=== PATIENT | female | born 1975 | race American Indian/Alaskan Native ===

== ENCOUNTER 2017-02-08 13:40 | Emergency (ER) | payer SELFPAY ==
[~2017-02-08] VITALS: Ht 162.6 cm; Wt 69.1 kg
[~2017-02-08 13:40] MED LIST: DOCU-30 PO; HYDR-3138 PO; IBUP-1222 PO; IBUP200T48 PO; NAPR250T; OXYC-302 PO; OXYC1TAB7 PO; PROM25TA10 PO; [UNRECOGNIZED DRUG - REMARK]
[2017-02-08 13:44] VITALS: BP 129/85
[2017-02-08] MEDS ORDERED: SODIUM CHLORIDE 0.9% 1,000 ML IV ONE (13:58)
[2017-02-08] MEDS ORDERED: SODIUM CHLORIDE FLUSH 10ML SYR IVF ONE (14:00)
[2017-02-08] MEDS ORDERED: SODIUM CHLORIDE 0.9% 1,000ML IVBOLUS ONE (14:00)
[2017-02-08] MEDS ORDERED: ONDANSETRON 2MG/ML, 2ML IVPush ONE (14:00)
[2017-02-08] MEDS ORDERED: ONDANSETRON 2MG/ML, 2ML ONE (14:26)
[2017-02-08] MEDS ORDERED: HYDROmorphone 1 MG/ML, 1ML ONE (14:26)
[2017-02-08] MEDS: HYDROmorphone 1 MG/ML, 1ML IVPush PRN ×2 (14:29→14:32)
[2017-02-08 14:48] LABS: BLOOD UREA NITROGEN 13 mg/dL (7-18)
[2017-02-08 14:51] LABS: ASPARTATE AMINO TRANSFERASE 13 U/L (15-37)
[2017-02-08] MEDS ORDERED: MAALOX/HYOSCYAMINE/LIDOCAINE 45 ML BOTTLE PO ONE (15:00)
[2017-02-08] MEDS ORDERED: MAALOX/HYOSCYAMINE/LIDOCAINE 45 ML BOTTLE ONE (15:03)
== END 2017-02-08 15:34 | disposition home or self-care (01) ==
LOC: ED 15:15
DX: A08.4 Viral intestinal infection, unspecified (principal); K21.0 Gastro-esophageal reflux disease with esophagitis; Z90.710 Acquired absence of both cervix and uterus
CPT/HCPCS: 36415; 76700; 80053; 81003; 83690; 85025; 96361; 96374; 96375; 99285; J1170; J2405; J7030

== ENCOUNTER 2018-07-26 08:42 | Emergency (ER) | payer OTHER ==
[~2018-07-26] VITALS: Ht 162.6 cm; Wt 68.0 kg
[~2018-07-26 08:42] MED LIST changes: +DOCU-131 PO; -DOCU-30 PO; -HYDR-3138 PO; +HYDR-3237 PO; -IBUP200T48 PO; +IBUP200T49 PO
[2018-07-26] MEDS ORDERED: ONDANSETRON ODT 4 MG PO ONE (09:30)
[2018-07-26] MEDS ORDERED: KETOROLAC 30 MG/1 ML IM ONE (09:30)
[2018-07-26 09:35] LABS: MICROSCOPIC AUTO
[2018-07-26 09:39] LABS: BASOPHILS # (AUTO) 0.06 x10^3/uL (0-0.1); BASOPHILS % (AUTO) 1 % (0-1); EOSINOPHILS # (AUTO) 0.27 x10^3/uL (0-0.4); EOSINOPHILS % (AUTO) 4 % (1-7); LYMPHOCYTES # (AUTO) 1.65 x10^3/uL (1-3.4); LYMPHOCYTES % (AUTO) 26 % (22-44); MD NO; MEAN CORPUSCULAR HEMOGLOBIN 33.7 pg (27.0-34.8); MEAN CORPUSCULAR HGB CONC 33.8 g/dL (32.4-35.8); MEAN CORPUSCULAR VOLUME 99.6 fL (80-100); MEAN PLATELET VOLUME 7.7 fL (7.4-10.4); MONOCYTES # (AUTO) 0.59 x10^3/uL (0.2-0.8); MONOCYTES % (AUTO) 9 % (2-9); NEUTROPHILS # (AUTO) 3.86 x10^3/uL (1.8-6.8); NEUTROPHILS % (AUTO) 60 % (42-75); PLATELET COUNT 285 x10^3/uL (130-400); RED BLOOD COUNT 4.16 x10^6/uL (3.82-5.3); RED CELL DISTRIBUTION WIDTH 13.8 % (9.6-15.2)
[2018-07-26 09:40] LABS: CULTURE INDICATED? YES
[2018-07-26 09:45] LABS: ALANINE AMINOTRANSFERASE 20 U/L (12-78); ALBUMIN 3.8 g/dL (3.4-5.0); ANION GAP 7 mmol/L (5-15); CALCIUM 8.6 mg/dL (8.5-10.1); CHLORIDE 111 mmol/L (98-107); CREATININE 0.56 mg/dL (0.55-1.02)
[2018-07-26 09:49] LABS: ALKALINE PHOSPHATASE 65 U/L (45-117); BILIRUBIN,TOTAL 0.3 mg/dL (0.2-1.0); TOTAL PROTEIN 7.5 g/dL (6.4-8.2)
[2018-07-26] MEDS ORDERED: KETOROLAC 30 MG/1 ML ONE (10:07)
[2018-07-26] MEDS ORDERED: ONDANSETRON ODT 4 MG ONE (10:08)
[2018-07-26 10:15] VITALS: BP 104/66
== END 2018-07-26 11:21 | disposition home or self-care (01) ==
LOC: ED 09:26
DX: N13.2 Hydronephrosis with renal and ureteral calculous obstruction (principal); K21.9 Gastro-esophageal reflux disease without esophagitis; F17.200 Nicotine dependence, unspecified, uncomplicated; Z90.710 Acquired absence of both cervix and uterus
CPT/HCPCS: 36415; 74176; 80053; 81001; 83690; 84703; 85025; 87086; 96372; 99284; J1885; Q0162

== ENCOUNTER 2019-06-11 11:43 | Inpatient (IN) | payer BC, OTHER ==
[~2019-06-11] VITALS: Ht 170.2 cm; Wt 68.0 kg
[2019-06-11 12:50] LABS: BASOPHILS # (AUTO) 0.06 x10^3/uL (0-0.1); BASOPHILS % (AUTO) 1 % (0-1); EOSINOPHILS # (AUTO) 0.13 x10^3/uL (0-0.4); EOSINOPHILS % (AUTO) 2 % (1-7); LYMPHOCYTES # (AUTO) 1.97 x10^3/uL (1-3.4); LYMPHOCYTES % (AUTO) 26 % (22-44); MD NO; MEAN CORPUSCULAR HEMOGLOBIN 34.7 pg (27.0-34.8); MEAN CORPUSCULAR HGB CONC 33.1 g/dL (32.4-35.8); MEAN CORPUSCULAR VOLUME 104.7 fL (80-100); MEAN PLATELET VOLUME 7.7 fL (7.4-10.4); MONOCYTES % (AUTO) 5 % (2-9); NEUTROPHILS % (AUTO) 66 % (42-75); PLATELET COUNT 301 x10^3/uL (130-400); RED BLOOD COUNT 4.23 x10^6/uL (3.82-5.3); RED CELL DISTRIBUTION WIDTH 13.5 % (9.6-15.2)
[2019-06-11 13:01] LABS: ANION GAP 6 mmol/L (5-15); CALCIUM 8.5 mg/dL (8.5-10.1); CHLORIDE 116 mmol/L (98-107)
[2019-06-11 13:05] LABS: TROPONIN I < 0.015 ng/mL (0.000-0.045)
--- NOTE | 2019-06-11 13:15 | NUR ---
PT HAS VAGUE COMPLAINT OF "FEELING WEIRD, AND PEOPLE ASKING HER IF SHE FEELS OK". PT DENIES N.V.D. PT IN GOWN. UA COLLECTED
[2019-06-11 13:22] LABS: MICROSCOPIC NOT IND
[2019-06-11] MEDS ORDERED: SODIUM CHLORIDE 0.9% 1,000ML IVBOLUS ONE (13:30)
[2019-06-11] MEDS ORDERED: SODIUM CHLORIDE FLUSH 10ML SYR IVF ONE (13:30)
[2019-06-11 13:49] LABS: CULTURE INDICATED? NO
--- NOTE | 2019-06-11 14:03 | NUR ---
lab results critical. aware.
[2019-06-11] MEDS ORDERED: OXYcodone/APAP 5/325MG TABLET PO ONE (14:30)
[2019-06-11] MEDS ORDERED: SODIUM BICARBONATE 8.4% 150 MEQ in DEXTROSE 5% 1,000 ML IV SCH (14:30)
[2019-06-11] MEDS ORDERED: OXYcodone/APAP 5/325MG TABLET ONE (14:34)
--- NOTE | 2019-06-11 14:42 | NUR ---
NISA RN: PHARMACY SLIP SENT. PT RESTING IN ROOM. VS STABLE. CALL LIGHT IN PLACE. WILL CONTINUE TO MONITOR WHILE PRIMARY RN IS ON BREAK.
[2019-06-11] MEDS ORDERED: BUPIVACAINE LIPOSOME/PF 10ML INFIL ONE (14:45)
--- NOTE | 2019-06-11 15:13 | NUR ---
REPORT TO MARY
[2019-06-11 15:43] VITALS: BP 105/65
[2019-06-11] MEDS ORDERED: ENOXAPARIN 40 MG/0.4 ML SQ SCH (16:30)
[2019-06-11] MEDS ORDERED: ONDANSETRON ODT 4 MG PO PRN (16:30)
[2019-06-11] MEDS ORDERED: NICOTINE 14MG/24 HR PATCH.TD24 TD SCH (16:30)
[2019-06-11] MEDS ORDERED: DOCUSATE 100 MG CAPSULE PO PRN (16:30)
[2019-06-11] MEDS: SODIUM BICARBONATE 8.4% 150 MEQ in DEXTROSE 5% 1,000 ML IV SCH (16:41)
[2019-06-11] MEDS: KETOROLAC 30 MG/1 ML IVPush PRN (16:42)
[2019-06-11 19:22] VITALS: BP 93/57
[2019-06-12] MEDS: KETOROLAC 30 MG/1 ML IVPush PRN ×2 (00:34→10:31)
[2019-06-12] MEDS: SODIUM BICARBONATE 8.4% 150 MEQ in DEXTROSE 5% 1,000 ML IV SCH ×3 (00:34→15:30)
[2019-06-12] MEDS: ONDANSETRON 2MG/ML, 2ML IVPush PRN ×2 (00:37→10:28)
[2019-06-12 01:14] LABS: ALANINE AMINOTRANSFERASE 15 U/L (12-78); ALBUMIN 3.2 g/dL (3.4-5.0); ANION GAP 4 mmol/L (5-15); CALCIUM 7.9 mg/dL (8.5-10.1); CHLORIDE 114 mmol/L (98-107); CREATININE 0.58 mg/dL (0.55-1.02); SALICYLATE LEVEL 13.7 mg/dL (2.8-20.0)
[2019-06-12 01:17] LABS: ALKALINE PHOSPHATASE 52 U/L (45-117); BILIRUBIN,TOTAL 0.2 mg/dL (0.2-1.0); TOTAL PROTEIN 5.9 g/dL (6.4-8.2)
[2019-06-12 02:34] VITALS: BP 113/71
[2019-06-12 05:41] LABS: BASOPHILS # (AUTO) 0.03 x10^3/uL (0-0.1); BASOPHILS % (AUTO) 1 % (0-1); EOSINOPHILS # (AUTO) 0.04 x10^3/uL (0-0.4); EOSINOPHILS % (AUTO) 1 % (1-7); LYMPHOCYTES # (AUTO) 1.21 x10^3/uL (1-3.4); LYMPHOCYTES % (AUTO) 24 % (22-44); MD NO; MEAN CORPUSCULAR HEMOGLOBIN 34.7 pg (27.0-34.8); MEAN CORPUSCULAR VOLUME 105.3 fL (80-100); MEAN PLATELET VOLUME 7.9 fL (7.4-10.4); MONOCYTES # (AUTO) 0.22 x10^3/uL (0.2-0.8); MONOCYTES % (AUTO) 4 % (2-9); NEUTROPHILS # (AUTO) 3.54 x10^3/uL (1.8-6.8); NEUTROPHILS % (AUTO) 70 % (42-75); PLATELET COUNT 241 x10^3/uL (130-400); RED BLOOD COUNT 3.68 x10^6/uL (3.82-5.3); RED CELL DISTRIBUTION WIDTH 13.6 % (9.6-15.2)
[2019-06-12 05:46] LABS: ANION GAP 4 mmol/L (5-15); CHLORIDE 112 mmol/L (98-107)
[2019-06-12 05:52] LABS: ALANINE AMINOTRANSFERASE 15 U/L (12-78); ALKALINE PHOSPHATASE 49 U/L (45-117); BILIRUBIN,TOTAL 0.2 mg/dL (0.2-1.0); TOTAL PROTEIN 5.7 g/dL (6.4-8.2)
[2019-06-12 07:31] VITALS: BP 109/71
[2019-06-12] MEDS ORDERED: MAGNESIUM SULFATE PMX 2GM/50ML 50 ML IV ONE (09:30)
[2019-06-12] MEDS ORDERED: POTASSIUM CHLORIDE 20 MEQ in SODIUM CHLORIDE 0.9% 250 ML IV ONE (09:30)
[2019-06-12] MEDS ORDERED: METOCLOPRAMIDE 5 MG/ML, 2ML IVPush PRN (09:30)
[2019-06-12] MEDS ORDERED: DIPHENHYDRAMINE 50 MG/ML, 1ML IVPush ONE (10:30)
[2019-06-12] MEDS ORDERED: PROCHLORPERAZINE 5 MG/ML, 2ML IVPush ONE (10:30)
[2019-06-12] MEDS ORDERED: DEXAMETHASONE 4 MG/ML, 1ML IVPush ONE (10:30)
[2019-06-12] MEDS ORDERED: SUMA25TA4 PO (12:34)
[2019-06-12] MEDS ORDERED: AMIT10TA PO (12:34)
[2019-06-12 13:24] VITALS: BP 107/67
[2019-06-12] MEDS ORDERED: ASCORBIC ACID 500 MG TABLET PO SCH (17:00)
[2019-06-12] MEDS ORDERED: AMITRIPTYLINE 10 MG TABLET PO SCH (21:00)
== END 2019-06-12 16:35 | disposition home or self-care (01) | DRG 918 ==
LOC: ED 14:17 → EDIP 14:18 → ED 14:28 → 3N 15:26 → DCLOUNGE 06-12 16:30
PROVIDERS: ADMIT Internal Medicine; ATTEND Internal Medicine
DX: T39.011A Poisoning by aspirin, accidental (unintentional), initial encounter (principal); G43.909 Migraine, unspecified, not intractable, without status migrainosus; G89.29 Other chronic pain; H91.90 Unspecified hearing loss, unspecified ear; H93.13 Tinnitus, bilateral; G44.229 Chronic tension-type headache, not intractable; F17.210 Nicotine dependence, cigarettes, uncomplicated; T39.095A Adverse effect of salicylates, initial encounter; M54.9 Dorsalgia, unspecified; Y92.89 Other specified places as the place of occurrence of the external cause; Z90.710 Acquired absence of both cervix and uterus
CPT/HCPCS: 36415; 80048; 80053; 80307; 81003; 82040; 82607; 82800; 83735; 84443; 84484; 84703; 85025; 93005; 96361; 96365; G0378; J1100; J1650; J1885; J2405; J3480; J7070; J0780; J1200; J3475; J7030; J7050